=== PATIENT | male | born 1965 | race Caucasian/White ===

== ENCOUNTER 2017-08-27 06:52 | Emergency (ER) | payer OTHER ==
[~2017-08-27] VITALS: Ht 182.9 cm; Wt 97.5 kg
--- NOTE | ~2017-08-27 | PROC ---
[address] [address] PROCEDURE REPORT Name: АЛЕКСАНДР MANCERA Room: [facility] Aaliyah#: [id number] Admission: 08/27/17 Attend Phys: Discharge: 08/27/17 Date of : 63 Report #: [id number] THIS REPORT FOR: //name// For GI report, please see the Provation report in [employer] content. By: [id number] Records Staff TE /LUCI
[~2017-08-27 06:52] MED LIST: ADVAIR 250-501 EACH INH; ALBUTEROL INHAL17 GM INH; CELEXA 20 MG TA20 MG PO; FLEXERIL PO; LISINOPRIL; PERCOCET 5-3251 EACH PO; PREDNISONE 20 M20 M1 PO; VENTOLIN HFA INH8 GM IH
[2017-08-27 13:48] VITALS: BP 129/91
--- NOTE | 2017-08-30 16:07 | PATH ---
[address] [address] PATHOLOGY RPT PROCEDURE Name: JERONIMO MANCERA Room: [facility] Aaliyah#: [id number] Admission: 08/27/17 Date of : 63 Discharge: 08/27/17 Report #: [id number] Path Case #: [id number] [facility] Accession Number: [id number] . 01 Material submitted: . DUODENAL BIOPSIES . 01 Clinical history: . None provided . 02 Diagnosis: Duodenal biopsies: - Moderate nonspecific active duodenitis, negative for granulomas and dysplasia. (YUDITH:[facility] 08/29/2017) QTP/08/29/2017 . 02 Electronically signed: . Edin Howard MD, Pathologist NPI- [id number] . 01 Gross description: . Received in formalin labeled "Jeronimo Mancera, duodenal biopsies," is a single segment of maza soft tissue measuring 0.4 cm in maximum dimension. The specimen is submitted entirely in cassette A1. (TSD; 08/27/2017) TOB/TOB . 02 Pathologist provided ICD-10: K29.80 . 02 CPT . 821690 Performed at: 01 [facility] [address] [place] [address] [address], [place] [id number] MD Mikael Damon MD Phone: [phone] Performed at: [address] [place] [address] [address], [place], [place] [id number] MD Edin Howard MD Phone: [phone]
== END 2017-08-27 13:50 | disposition still patient (30) ==
LOC: M.GI 06:52 → M.ERS 06:52
DX: T18.128A Food in esophagus causing other injury, initial encounter (principal); J45.909 Unspecified asthma, uncomplicated; X58.XXXA Exposure to other specified factors, initial encounter; Y93.89 Activity, other specified; Y92.89 Other specified places as the place of occurrence of the external cause; Y99.8 Other external cause status